=== PATIENT | female | born 1965 | race Caucasian/White ===

== ENCOUNTER 2022-11-28 15:47 | Observation (INO) ==
--- NOTE | 2022-11-28 16:14 | DR.NAUSEAF ---
HPI Time Seen Time Seen by Provider: 11/28/22 16:12 Primary Care Physician Primary Care Physician: nfd Complaints Chief Complaint Doctors Comments: 57 y/o female presents for evaluation. Has been having frequent nausea and vomiting over the past 9 days. Possibly set off by bad food. Seen at an Urgent Care 2 days ago, treated with phenergan, doxycycline, cough/cold medicine, not helping. Having pain across the upper abdomen, wax/wanes, does not radiate. Worse with eating, nothing makes better. Denies fever, diarrhea, constipation. No urinary issues. Having a non productive cough. No h/o abdominal surgeries. Chief Complaint:: vomiting for the past 9 day. unable to keep anything down including meds that were rx by another facility. dx with non ulcer dyspepsia years ago. has had very little diarrhea. pain to the entire abd that is worse at the top of the stomach Self Treatment fo Chief Complaint: taking meds as rx COVID-19 Coronavirus risk:travel/contact w/high risk person: No Has patient experienced Coronavirus symptoms: No Reviewed Nurses Notes Reviewed: Yes Source History Provided: Patient Mode of Arrival Mode of Arrival: Ambulatory Timing Onset of Chief Complaint: 11/16/22 PMH PMH Past Medical History: Yes Past Medical History Comment: non ulcerative Past Surgical History: No Family History History of Family Medical Conditions: No (adopted) Social History Alcohol Use: Occasionally Do you use any recreational Drugs:: Yes (thc) Lives With: Family Lives Where: Home Travel Risk Coronavirus risk:travel/contact w/high risk person: No Has patient experienced Coronavirus symptoms: No Infectious screening In the last 2 months have you had wt loss of >10#?: NO Have you had fever, night sweats or hemotysis?: No Have you traveled outside the country in the last 6 months?: No Isolation: Standard ROS Review of Systems Constitutional: Weakness Eyes: No Symptoms Reported ENTM: No Symptoms Reported Respiratoy: Non-Productive Cough Cardiovascular: No Symptoms Reported Gastrointestinal/Abdominal: See HPI Genitourinary: No Symptoms Reported Neurological: Weakness Musculoskeletal: No Symptoms Reported Integumentary: No Symptoms Reported Hematologic/Lymphatic: No Symptoms Reported Psychiatric: No Symptoms Reported All Other Systems: Reviewed and Negative PE Vital Signs Vitals: Temperature 97.9 F Pulse Rate 101 Respiratory Rate 22 Blood Pressure [Right Arm] 132/76 Blood Pressure 149/92 O2 Sat by Pulse Oximetry 100 General General Appearance: Alert and In No Apparent Distress Eyes Eye exam: PERRL and EOMI ENT ENT Exam: Normal Oropharynx, Mucous Membranes Moist and TM's Normal Bilaterally Neck Neck Exam: Normal Inspection; negative Tenderness Respiratory Respiratory Exam: Normal Lung Sounds Bilat; negative Accessory Muscle Use or Respiratory Distress Cardiovascular Cardiovascular Exam: Regular Rate, Normal Rhythm, Tachycardia and Normal Heart Sounds Abdominal Exam Abdominal Exam: Normal Bowel Sounds, Soft and Tenderness (across upper abdomen, no Gonzalez's) Extremities Extremities Exam: Normal Inspection; negative Edema Back Back Exam: Normal Inspection; negative (R) CVA Tenderness or (L) CVA Tenderness Neurologic Neurological Exam: Alert, Oriented X3 and CN II-XII Intact; negative Motor Sensory Deficit Skin Skin Exam: Warm and Dry COURSE Treatment Treatment: 57 y/o female with frequent vomiting, upper abdominal pain over the past 9 days. W/u initiated. Pt given IV fluids, IV zofran/protonix. 1852 - Pt doing better with nausea/pain. GB US normal. Labs show mild elevation in WBCs at 13K, has a low potassium of 2.6. Pt given IV KCl, [address] Scales, covering for admissions. Accepts the admission. Mg (and phos) added per his request. [facility] Labs Reviewed Laboratory Results Reviewed?: Yes Result Diagrams: 11/28/22 16:22 11/28/22 16:22 Laboratory: WBC 13.0 X10^3/uL (3.6-10.0) H 11/28/22 16:22 RBC 5.52 X10^6/uL (3.5-5.4) H 11/28/22 16:22 Hgb 15.2 g/dL (12.0-16.0) 11/28/22 16:22 Hct 43.7 % (36.0-47.0) 11/28/22 16: MCV 79.2 fL (80.0-100.0) L 11/28/22 16:22 MCH 27.5 pg (27.0-34.0) 11/28/22 16:22 MCHC 34.8 g/dL (33.0-35.0) 11/28/22 16: RDW 13.3 % (11.6-16.5) 11/28/22 16:22 Plt Count 422 X10^3/uL (150.0-450.0) 11/28/22 16:22 MPV 7.8 fL (7.4-11.0) 11/28/22 16:22 Neut % (Auto) 78.6 % (42.0-75.0) H 11/28/22 16:22 Lymph % (Auto) 15.3 % (21.0-51.0) L 11/28/22 16:22 [place] % (Auto) 5.6 % (0.0-13.0) 11/28/22 16:22 Eos % (Auto) 0.1 % (0.9-2.9) L 11/28/22 16:22 Baso % (Auto) 0.4 % (0.2-1.0) 11/28/22 16:22 Neut # (Auto) 10.2 x10^3/uL (2.2-4.8) H 11/28/22 16:22 Lymph # (Auto) 2.0 X10^3/uL (1.3-2.9) 11/28/22 16:22 [place] # (Auto) 0.7 x10^3/uL (0.3-0.8) 11/28/22 16:22 Eos # (Auto) 0.0 x10^3/uL (0.0-0.2) 11/28/22 16:22 Baso # (Auto) 0.1 X10^3/uL (0.0-0.1) 11/28/22 16:22 Absolute Nucleated RBC 0.0 /100WBC 11/28/22 16:22 Sodium 137 mmol/L (136-145) 11/28/22 16:22 Corrected Sodium 138 mmol/L (136-145) 11/28/22 16:22 Potassium 2.6 mmol/L (3.5-5.1) L* 11/28/22 16:22 Chloride 94 mmol/L (98-107) L 11/28/22 16:22 Carbon Dioxide 28.7 mmol/L (21-32) 11/28/22 16:22 BUN 29 mg/dL (7-18) H 11/28/22 16:22 Creatinine 1.16 mg/dL (0.55-1.02) H 11/28/22 16:22 Est GFR (MDRD) Af Amer > 60 (>60) 11/28/22 16:22 Est GFR (MDRD) Non-Af 52 (>60) L 11/28/22 16:22 Glucose 159 mg/dL (65-99) H 11/28/22 16:22 Calcium 9.9 mg/dL (8.5-10.1) 11/28/22 16:22 Corrected Calcium TNP 11/28/22 16:22 Total Bilirubin 1.00 mg/dL (0.2-1.0) 11/28/22 16:22 AST 14 Units/L (15-37) L 11/28/22 16:22 ALT 22 Units/L (12-78) 11/28/22 16:22 Alkaline Phosphatase 66 Units/L (46-116) 11/28/22 16:22 Total Protein 8.2 g/dL (6.4-8.2) 11/28/22 16:22 Albumin 4.6 g/dL (3.4-5.0) 11/28/22 16:22 Globulin 3.6 g/dL (2.5-4.5) 11/28/22 16:22 Albumin/Globulin Ratio 1.3 Ratio (1.1-2.1) 11/28/22 16:22 Lipase 83 Units/L (73-393) 11/28/22 16:22 XRAY XRAY Interpreted by: Self X-ray Results: CXR - unremarkable Opioid Opioid Risk Tool Age (Edin box if 16-45): No History of Preadolescent Sexual Abuse: No Total: 0 Total Score Risk Category: Low Risk Copyright: Mustapha SANDERS predicting aberrant behaviors Discharge Plan Diagnosis Discharge Problem: Nausea and vomiting in adult patient, Hypokalemia Discharge Plan Patient Disposition: ADMITTED INPATIENT Condition: Stable Prescriptions: No Action Ed A-Hist DM 4-10-15 mg/5 mL liquid 5 ml PO Q4-6H PRN (Reason: cough) doxycycline hyclate 100 mg tablet 100 mg PO BID promethazine 25 mg suppository 25 mg Q6H PRN (Reason: nausea and vomiting) Health Concerns: Post Hospitalization: new medications and changes needed to prevent readmission or further decline. Pt educated and given instructions on all concerns. Plan of Treatment: Continue with present treatment and follow up plan. Pt is to keep follow up appointment as instructed and take medications as ordered. Orders to Discharge Patient Discharge Orders: Transfer (Routine); Ordered 11/28/22 Ordered By: Elias Duque Follow ups/Referrals Follow ups/Referrals: [facility],None [Primary Care Provider] - 3 days
[2022-11-28] MEDS ORDERED: NS 1,000 ML IV 1,000 ML IV ONE (16:18)
[2022-11-28] MEDS ORDERED: ZOFRAN INJ 4 MG VIAL IVP ONE (16:18)
[2022-11-28] MEDS ORDERED: PROTONIX INJ 40 MG VIAL IVP ONE (16:18)
[2022-11-28 16:30] LABS: BASOPHILS # (AUTO) 0.1 X10^3/uL (0.0-0.1); BASOPHILS % (AUTO) 0.4 % (0.2-1.0); EOSINOPHILS % (AUTO) 0.1 % (0.9-2.9); HEMATOCRIT 43.7 % (36.0-47.0); HEMOGLOBIN 15.2 g/dL (12.0-16.0); LYMPHOCYTES % (AUTO) 15.3 % (21.0-51.0); MEAN CORPUSCULAR HEMOGLOBIN 27.5 pg (27.0-34.0); MEAN CORPUSCULAR HGB CONC 34.8 g/dL (33.0-35.0); MEAN CORPUSCULAR VOLUME 79.2 fL (80.0-100.0); MEAN PLATELET VOLUME 7.8 fL (7.4-11.0); MONOCYTES # (AUTO) 0.7 x10^3/uL (0.3-0.8); MONOCYTES % (AUTO) 5.6 % (0.0-13.0); NEUTROPHILS # (AUTO) 10.2 x10^3/uL (2.2-4.8); NEUTROPHILS % (AUTO) 78.6 % (42.0-75.0); RED BLOOD COUNT 5.52 X10^6/uL (3.5-5.4); RED CELL DISTRIBUTION WIDTH 13.3 % (11.6-16.5)
[2022-11-28 16:41] LABS: ALANINE AMINOTRANSFERASE 22 Units/L (12-78); ALBUMIN 4.6 g/dL (3.4-5.0); ALKALINE PHOSPHATASE 66 Units/L (46-116); ASPARTATE AMINO TRANSFERASE 14 Units/L (15-37); BLOOD UREA NITROGEN 29 mg/dL (7-18); CALCIUM 9.9 mg/dL (8.5-10.1); CARBON DIOXIDE 28.7 mmol/L (21-32); CHLORIDE 94 mmol/L (98-107); COR NA(FOR HYPERGLY) 138 mmol/L (136-145); CREATININE 1.16 mg/dL (0.55-1.02); LIPASE 83 Units/L (73-393); SODIUM 137 mmol/L (136-145); TOTAL PROTEIN 8.2 g/dL (6.4-8.2); eGFR NON BLACK RACES 52 (>60)
[2022-11-28] MEDS ORDERED: K-RIDER 10 MEQ/NS 100 ML 10 MEQ/100 ML BAG IV ONE ×3 (17:30→23:57)
[2022-11-28] MEDS ORDERED: APRESOLINE INJ 20 MG VIAL IVP ONE (18:59)
[2022-11-28 19:01] LABS: MAGNESIUM 2.2 mg/dL (2.0-2.9); PHOSPHORUS 3.2 mg/dL (2.6-4.7)
[2022-11-28] MEDS ORDERED: APRESOLINE INJ 20 MG VIAL IVP PRN (19:50)
[2022-11-28] MEDS ORDERED: D5 1/2 NS 1,000 ML 1,000 ML with POTASSIUM CHLORIDE INJ 40 MEQ VIAL 40 MEQ IV SCH ×2 (19:50)
[2022-11-28] MEDS ORDERED: ZOFRAN INJ 4 MG VIAL ONE (21:15)
[2022-11-28] MEDS: ZOFRAN INJ 4 MG VIAL IVP PRN (21:22)
[2022-11-28] MEDS ORDERED: CARAFATE ONE (21:52)
[2022-11-28] MEDS ORDERED: POTASSIUM CHL 40 MEQ/NS 0.45% 500 ML IV PRN (21:56)
[2022-11-28] MEDS ORDERED: POTASSIUM CHLORIDE LIQ 20 MEQ UDC PO PRN (21:56)
[2022-11-28] MEDS ORDERED: MICRO K EXTEN CAP 10 MEQ PO PRN (21:56)
[2022-11-28] MEDS ORDERED: KLOR-CON PO PRN (21:56)
[2022-11-28] MEDS ORDERED: POTASSIUM CHL 60 MEQ/NS 0.45% 500 ML IV PRN (21:56)
[2022-11-28] MEDS: CARAFATE PO SCH (21:56)
[2022-11-28] MEDS ORDERED: K-DUR TAB 20 MEQ PO PRN (21:56)
[2022-11-28] MEDS ORDERED: NS + KCL 20 MEQ/L 1,000 ML IV ONE (22:05)
[2022-11-28] MEDS: K-RIDER 10 MEQ/NS 100 ML 10 MEQ/100 ML BAG IV PRN ×2 (23:02→23:59)
[2022-11-28] MEDS: NS + KCL 20 MEQ/L 1,000 ML IV SCH (23:03)
[2022-11-29] MEDS ORDERED: K-RIDER 10 MEQ/NS 100 ML 10 MEQ/100 ML BAG IV ONE ×2 (00:50→01:51)
[2022-11-29] MEDS: K-RIDER 10 MEQ/NS 100 ML 10 MEQ/100 ML BAG IV PRN ×2 (00:53→05:26)
[2022-11-29] MEDS ORDERED: ZOFRAN INJ 4 MG VIAL ONE (03:54)
[2022-11-29] MEDS: ZOFRAN INJ 4 MG VIAL IVP PRN (04:02)
[2022-11-29 04:56] LABS: BASOPHILS % (AUTO) 0.4 % (0.2-1.0); EOSINOPHILS % (AUTO) 0.2 % (0.9-2.9); LYMPHOCYTES # (AUTO) 2.6 X10^3/uL (1.3-2.9); MEAN CORPUSCULAR HEMOGLOBIN 27.4 pg (27.0-34.0); MEAN CORPUSCULAR HGB CONC 34.6 g/dL (33.0-35.0); MEAN CORPUSCULAR VOLUME 79.1 fL (80.0-100.0); MEAN PLATELET VOLUME 8.2 fL (7.4-11.0); MONOCYTES # (AUTO) 0.9 x10^3/uL (0.3-0.8); MONOCYTES % (AUTO) 8.6 % (0.0-13.0); NEUTROPHILS # (AUTO) 6.5 x10^3/uL (2.2-4.8); NEUTROPHILS % (AUTO) 64.8 % (42.0-75.0); RED BLOOD COUNT 4.81 X10^6/uL (3.5-5.4); RED CELL DISTRIBUTION WIDTH 13.2 % (11.6-16.5); WHITE BLOOD COUNT 10.1 X10^3/uL (3.6-10.0)
[2022-11-29 05:04] LABS: ALANINE AMINOTRANSFERASE 22 Units/L (12-78); ALBUMIN 3.6 g/dL (3.4-5.0); ALKALINE PHOSPHATASE 52 Units/L (46-116); ASPARTATE AMINO TRANSFERASE 15 Units/L (15-37); BLOOD UREA NITROGEN 25 mg/dL (7-18); CALCIUM 8.8 mg/dL (8.5-10.1); CARBON DIOXIDE 28.5 mmol/L (21-32); CHLORIDE 102 mmol/L (98-107); CREATININE 0.96 mg/dL (0.55-1.02); SODIUM 140 mmol/L (136-145); TOTAL PROTEIN 6.4 g/dL (6.4-8.2); eGFR NON BLACK RACES > 60 (>60)
[2022-11-29 05:10] LABS: HEMOGLOBIN 13.2 g/dL (12.0-16.0)
[2022-11-29] MEDS ORDERED: NS + KCL 20 MEQ/L 1,000 ML IV ONE (06:04)
[2022-11-29] MEDS: NS + KCL 20 MEQ/L 1,000 ML IV SCH ×3 (07:10→21:15)
[2022-11-29] MEDS: CARAFATE PO SCH ×4 (07:11→20:13)
[2022-11-29] MEDS ORDERED: PHENERGAN INJ 25 MG IM ONE (09:21)
[2022-11-29] MEDS ORDERED: PHENERGAN INJ 25 MG IM PRN (09:26)
[2022-11-29] MEDS ORDERED: PROTONIX INJ 40 MG VIAL ONE (09:35)
[2022-11-29] MEDS: PROTONIX INJ 40 MG VIAL IVP SCH (09:36)
[2022-11-29 12:01] VITALS: BMI 29.5
[2022-11-29 13:33] LABS: BILIRUBIN,URINE 1+ (NEGATIVE); BLOOD/HEMOGLOBIN,URINE NEGATIVE (NEGATIVE); GLUCOSE, URINE NEGATIVE (NEGATIVE); KETONES,URINE 1+ (NEGATIVE); LEUKOCYTE ESTERASE ,URINE 2+ (NEGATIVE); NITRITES,URINE NEGATIVE (NEGATIVE); PROTEIN,URINE 2+ (NEGATIVE); UROBILINOGEN,URINE 1+ (NORMAL)
[2022-11-29 13:44] LABS: APPEARANCE,URINE CLEAR (CLEAR); COLOR,URINE DARK YELLOW (YELLOW)
[2022-11-29 13:45] LABS: BACTERIA,URINE TRACE /HPF (NEGATIVE); HYALINE CASTS, URINE RARE /LPF (NEGATIVE); RBC,URINE 0-2 /HPF (0-3); SQUAMOUS EPITHELIAL CELL,UR FEW /HPF (NEGATIVE)
[2022-11-29] MEDS: CYTOTEC PO SCH ×2 (14:03→21:15)
[2022-11-30 05:04] LABS: BASOPHILS % (AUTO) 0.4 % (0.2-1.0); EOSINOPHILS # (AUTO) 0.1 x10^3/uL (0.0-0.2); EOSINOPHILS % (AUTO) 1.1 % (0.9-2.9); HEMATOCRIT 35.1 % (36.0-47.0); HEMOGLOBIN 12.3 g/dL (12.0-16.0); LYMPHOCYTES # (AUTO) 3.1 X10^3/uL (1.3-2.9); LYMPHOCYTES % (AUTO) 41.9 % (21.0-51.0); MEAN CORPUSCULAR HEMOGLOBIN 27.7 pg (27.0-34.0); MEAN CORPUSCULAR VOLUME 79.2 fL (80.0-100.0); MEAN PLATELET VOLUME 8.2 fL (7.4-11.0); MONOCYTES # (AUTO) 0.5 x10^3/uL (0.3-0.8); NEUTROPHILS # (AUTO) 3.7 x10^3/uL (2.2-4.8); NEUTROPHILS % (AUTO) 49.6 % (42.0-75.0); RED BLOOD COUNT 4.43 X10^6/uL (3.5-5.4); RED CELL DISTRIBUTION WIDTH 13.8 % (11.6-16.5); WHITE BLOOD COUNT 7.4 X10^3/uL (3.6-10.0)
[2022-11-30 05:11] LABS: ALANINE AMINOTRANSFERASE 22 Units/L (12-78); ALBUMIN 3.2 g/dL (3.4-5.0); ALKALINE PHOSPHATASE 44 Units/L (46-116); ASPARTATE AMINO TRANSFERASE 15 Units/L (15-37); BLOOD UREA NITROGEN 13 mg/dL (7-18); CALCIUM 8.2 mg/dL (8.5-10.1); CARBON DIOXIDE 28.6 mmol/L (21-32); CHLORIDE 106 mmol/L (98-107); COR CA(FOR HYPOALB) 8.8 mg/dL (8.5-10.1); CREATININE 0.73 mg/dL (0.55-1.02); SODIUM 142 mmol/L (136-145); TOTAL PROTEIN 5.6 g/dL (6.4-8.2); eGFR NON BLACK RACES > 60 (>60)
[2022-11-30] MEDS: CYTOTEC PO SCH (05:36)
[2022-11-30] MEDS: NS + KCL 20 MEQ/L 1,000 ML IV SCH (05:36)
[2022-11-30] MEDS: CARAFATE PO SCH ×2 (05:36→06:05)
[2022-11-30] MEDS: K-RIDER 10 MEQ/NS 100 ML 10 MEQ/100 ML BAG IV PRN (05:39)
--- NOTE | 2022-11-30 07:10 | RAD ---
HISTORYNausea vomitingSTUDYAbdomen series with PA chest three viewsCOMPARISONMarch 2020FINDINGSPA chest: No acute findings.Abdomen series: Supine and upright views demonstrate normal gas pattern without significant dilatation, ileus, obstruction or pneumoperitoneum. There is no mass, or abnormal calcification.IMPRESSIONNo acute findings. See above.Electronically signed by: JULIA SANTACRUZ (Nov 30, 2022 07:09:26)
[2022-11-30 09:58] VITALS: BP 151/80
[2022-11-30] MEDS: PROTONIX INJ 40 MG VIAL IVP SCH (10:18)
== END 2022-11-30 10:55 | disposition home or self-care (01) ==
LOC: ER 15:47 → ICU 15:47
PROVIDERS: ADMIT Obstetrics & Gynecology Obstetrics; ATTEND Obstetrics & Gynecology Obstetrics
DX: Z20.822 Contact with and (suspected) exposure to COVID-19; E86.0 Dehydration; E87.6 Hypokalemia; R11.2 Nausea with vomiting, unspecified; J30.89 Other allergic rhinitis; F12.90 Cannabis use, unspecified, uncomplicated